=== PATIENT | female | born 1975 | race Hispanic/Latino ===

== ENCOUNTER 2024-09-15 15:32 | Emergency (ER) | payer BC, OTHER ==
[~2024-09-15] VITALS: Ht 149.9 cm; Wt 59.0 kg
--- NOTE | 2024-09-15 15:52 | EKG ---
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
[2024-09-15 16:13] VITALS: TEMP 98.8
[2024-09-15 16:30] LABS: BASOPHILS # (AUTO) 0.08 K/uL (0.00-0.20); BASOPHILS % (AUTO) 0.9 % (0.0-5.0); EOSINOPHILS # (AUTO) 0.09 K/uL (0.00-0.70); EOSINOPHILS % (AUTO) 1.1 % (0.0-8.0); HEMATOCRIT 41.7 % (36-48); IMMATURE GRANULOCYTE ABSOLUTE 0.03 K/uL (0-1); LYMPHOCYTES # (AUTO) 1.8 K/uL (1.0-4.8); LYMPHOCYTES % (AUTO) 20.8 % (21.0-51.0); MEAN CORPUSCULAR HEMOGLOBIN 31.8 pg (27.0-33.0); MEAN CORPUSCULAR HGB CONC 34.1 g/dL (32.0-36.0); MEAN CORPUSCULAR VOLUME 93.5 fL (79-99); MONOCYTES # (AUTO) 0.7 K/uL (0.1-1.0); MONOCYTES % (AUTO) 8.2 % (3.0-13.0); NEUTROPHILS # (AUTO) 5.8 K/uL (1.8-7.7); NEUTROPHILS % (AUTO) 68.6 % (40.0-77.0); PLATELET COUNT (AUTO) 375 K/uL (130-400); RED BLOOD CELL COUNT(AUTO) 4.46 MIL/uL (4.00-5.50); RED CELL DISTRIBUTION WIDTH 12.7 % (11.0-15.5); WHITE BLOOD COUNT (AUTO) 8.4 K/uL (4.8-10.8)
[2024-09-15 16:55] LABS: CREATININE 0.5 mg/dL (0.5-1.0); POTASSIUM 3.8 mmol/L (3.5-5.1)
[2024-09-15] MEDS: methoCARBamol 500 MG TABLET PO STA (17:08)
[2024-09-15] MEDS: ondanSETRON 4MG INJ IVP STA (17:08)
[2024-09-15] MEDS: morPHINE 2 MG SYG IVP STA (17:08)
--- NOTE | 2024-09-15 17:29 | HMCIMG ---
CHEST 1VW CLINICAL HISTORY: PALPITATIONS COMPARISON: None TECHNIQUE: Single view of the chest was obtained. FINDINGS: Lungs are clear. The cardiac size and mediastinum are unremarkable. The bony structures are within normal limits. IMPRESSION: No acute cardiopulmonary process identified.
--- NOTE | 2024-09-15 17:42 | HMCIMG ---
CT HEAD/BRAIN W/O CONTRAST CLINICAL HISTORY: severe headache COMPARISON: None TECHNIQUE: Multiple sequential axial images of the head were obtained from the base of the skull through vertex. CT was performed with one or more of the following dose reduction techniques: automated exposure control, adjustment of the mA and/or kV according to patient size, or use of iterative reconstruction technique FINDINGS: The brain parenchyma and CSF spaces are unremarkable. The orbital contents and mastoid air cells are unremarkable. There is minimal mucoperiosteal thickening in the ethmoid air cells. The calvarium is intact. IMPRESSION: Minimal chronic sinusitis.
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
[2024-09-15 18:04] VITALS: BP 127/78; PULSE 74; RESP 18; O2SAT 98
--- NOTE | 2024-09-16 10:23 | EKG ---
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
== END 2024-09-15 18:20 | disposition home or self-care (01) ==
LOC: EDH 15:32
DX: R51.9 Headache, unspecified (principal); J32.9 Chronic sinusitis, unspecified; Z88.0 Allergy status to penicillin; Z90.710 Acquired absence of both cervix and uterus
CPT/HCPCS: 99285; 96374; 70450; 71045; 96375; 83735; 84484; 80048; 85025; 36415; 93005; J2270; J2405

== ENCOUNTER → 2025-05-07 | Outpatient (CLI) | payer OTHER ==
[~2025-05-07] MED LIST: IOHEXOL 350 MG/ML 100ML INFUS..BTL IV ONE
--- NOTE | 2025-05-07 13:30 | HMCIMG ---
EXAM: CT Abdomen and Pelvis with Intravenous Contrast CLINICAL HISTORY: 49-year-old female, abnormal radiologic findings on diagnostic imaging TECHNIQUE: Axial computed tomography images of the abdomen and pelvis with intravenous contrast. Dose reduction technique was used including one or more of the following: automated exposure control, adjustment of mA and kV according to patient size, and/or iterative reconstruction. CONTRAST: 98 mL of IV contrast, standard dose of oral contrast COMPARISON: None provided. FINDINGS: LUNG BASES: Atelectasis of lung bases. LIVER: Unremarkable. GALLBLADDER AND BILE DUCTS: Unremarkable. No calcified stone. No ductal dilation. PANCREAS: Unremarkable. SPLEEN: Unremarkable. ADRENAL GLANDS: Unremarkable. KIDNEYS, URETERS, AND BLADDER: There is a low density structure in the mid pole of the left kidney measuring 1.6 cm in diameter, 23 Hounsfield units. Follow up with ultrasound. Symmetric excretion of contrast in both kidneys seen. No hydronephrosis or nephrolithiasis. No ureteral or bladder calculi. STOMACH AND BOWEL: Oral contrast seen in the stomach and small bowel, colon to the level of the left colon. No obstruction. No wall thickening. No CT evidence of colitis or acute diverticulitis. APPENDIX: Normal appendix seen. No CT evidence for appendicitis. PERITONEUM: No free fluid. No free air. LYMPH NODES: No lymphadenopathy. REPRODUCTIVE: Unremarkable as visualized. VASCULATURE: No aortic aneurysm. ABDOMINAL WALL AND SOFT TISSUES: Unremarkable. BONES: No fracture or suspicious osseous abnormality. IMPRESSION: 1. Low density structure in the mid pole of the left kidney measuring 1.6 cm in diameter, 23 Hounsfield units. Follow up with ultrasound. /[place]
== END | disposition home or self-care (01) ==
LOC: RAH 09:32
PROVIDERS: ATTEND Internal Medicine Gastroenterology
DX: R93.429 Abnormal radiologic findings on diagnostic imaging of unspecified kidney (principal); J98.11 Atelectasis
CPT/HCPCS: 74178; Q9967